=== PATIENT | female | born 1990 | race Two or more races ===

== ENCOUNTER 2025-07-14 11:41 | Emergency (ER) | payer BC, SELFPAY ==
[2025-07-14 11:42] VITALS: BMI 48.2
[2025-07-14 11:50] VITALS: BP 137/80; PULSE 85; RESP 17; TEMP 36.6; O2SAT 97
--- NOTE | 2025-07-14 12:30 | PD.EDRME ---
Rapid Medical Screening Exam E Arrival date/time: 07/14/25 11:41 This is a 34-year-old female that comes into the emergency room with complaints of left-sided flank pain that starts in her left lower abdomen and radiates to her back. Patient states she has had this pain for the past 4 days. Patient states that 3 days ago it seemed to have gone away and then it came back yesterday. Patient has history of diverticulitis, pacemaker placement, diabetes, hyperlipidemia, heart failure, hypertension. I have greeted and performed a focused initial assessment of this patient. Initial appropriate labs ordered at this time. A comprehensive ED assessment and evaluation of the patient and analysis of all test and completion of medical decision making process will be conducted by additional ED provider. Chief Complaint: Abdominal Pain Time Seen by Provider: 07/14/25 11:46 Vital signs: Vital Signs Temperature 97.9 F 07/14/25 11:50 Pulse Rate 85 07/14/25 11:50 Respiratory Rate 17 07/14/25 11:50 Blood Pressure 137/80 H 07/14/25 11:50 Pulse Oximetry (%) 97 07/14/25 11:50 Oxygen Delivery Method Room Air 07/14/25 11:50
[2025-07-14 13:10] LABS: Collection Type, Urine Voided
[2025-07-14 13:34] LABS: Basophils # (Auto) 0.1 Thou/mm3 (0.0-0.2); Basophils % (Auto) 1 % (0-2.5); Eosinophils # (Auto) 0.3 Thou/mm3 (0.0-0.5); Eosinophils % (Auto) 3 % (0-10); Hematocrit 41.5 % (36.0-46.0); Hemoglobin 14.0 g/dL (12.0-16.0); Immature Granulocytes Auto 0.03 Thou/mm3 (0.00-0.00); Lymphocytes # (Auto) 2.3 Thou/mm3 (1.0-4.8); Lymphocytes % (Auto) 20 % (10-50); Mean Corpuscular HGB Conc 33.7 g/dl (31.0-37.0); Mean Corpuscular Hemoglobin 28.1 pg (25.0-35.0); Mean Corpuscular Volume 83 fL (80-100); Monocytes # (Auto) 0.8 Thou/mm3 (0.0-0.8); Monocytes % (Auto) 7 % (0-12); Neutrophils # (Auto) 8.1 Thou/mm3 (1.8-7.7); Neutrophils % (Auto) 70 % (37-80); Nucleated Red Blood Cell # 0.00 Thou/mm3 (0.00-0.00); Nucleated Red Blood Cell % 0 /100 WBC (0); Platelet Count 376 Thou/mm3 (140-440); RDW Standard Deviation 39.2 fL (36.4-46.3); Red Blood Count 4.98 Miln/mm3 (4.00-5.20); White Blood Count 11.6 Thou/mm3 (3.6-11.0)
[2025-07-14 13:40] LABS: HCG Qualitative,Urine Negative
[2025-07-14 13:45] LABS: Alanine Aminotransferase 20 U/L (10-49); Albumin, Serum 4.2 gm/dL (3.5-5.0); Albumin/Globulin Ratio 1.4 (1.2-2.2); Alkaline Phosphatase 120 U/L (46-116); Anion Gap 9 (7-16); Aspartate Amino Transferase 20 U/L (0-34); BUN/Creatinine Ratio 15 Ratio (12-20); Bilirubin,Total 0.3 mg/dL (0.3-1.2); Blood Urea Nitrogen 12 mg/dL (9-23); Calcium 9.4 mg/dL (8.3-10.6); Calcium (Corrected) 9.4 mg/dL (8.5-10.1); Carbon Dioxide 24.7 mMol/L (20.0-31.0); Chloride 108 mMol/L (98-107); Creatinine (Component) 0.8 mg/dL (0.6-1.3); Estimated Creatinine Clearance 134.5 mL/min (>60); Globulin 2.9 gm/dL (2.3-3.5); Glucose 100 mg/dL (74-106); Lipase 56 U/L (12-53); Osmolality,Calculated 282 (275-295); Potassium 3.9 mMol/L (3.4-5.1); Sodium 142 mMol/L (136-145); Total Protein 7.1 gm/dL (5.7-8.2); eGFR > 60 See Note
[2025-07-14 13:47] LABS: Bacteria,Urine Rare; Bilirubin,Urine Negative (Negative); Blood,Urine 3+ (Negative); Calcium Oxalate Crystals,Urine 2+; Clarity,Urine Turbid (Clear/Hazy); Color,Urine Yellow (Lt Yel-Yel); Culture Indicated,Urine Not Indicated; Glucose, Urine Negative (Negative); Ketones,Urine Negative (Negative); Leukocyte Esterase,Urine Positive (Negative); Nitrite,Urine Negative (Negative); PH,Urine 6.0 (5.0-7.0); Protein,Urine 1+ (Neg - Trace); RBC,Urine 48 /hpf (0-3); Specific Gravity,Urine 1.028 (1.001-1.035); Squamous Epithelial Cell,Urine 10 /hpf (0-5); Urobilinogen,Urine Negative mg/dL (0.0-1.0); WBC,Urine 7 /hpf (0-5)
[2025-07-14 14:33] VITALS: BP 153/104; PULSE 77; RESP 20; TEMP 36.6; O2SAT 96
--- NOTE | 2025-07-14 14:34 | XR_ITS ---
Examination: CT abdomen and pelvis without contrast. Coronal 3-D reconstructions. Sagittal 2-D reconstructions. Date and time of exam: 07/14/2025, 2:51 p.m. COMPARISON: 12/08/2020 INDICATION: Left flank pain CTDI: vol (mGy): 23.6 DLP: (mGycm): 1348 Technique: Axial images of the abdomen have been obtained, 3 mm slice thickness Intravenous contrast material has not been administered. Low dose protocols were performed. One or more of the following dose reduction techniques were used; automated exposure control, adjustment of the mA and/or KV according to patient size, use of iterative reconstruction technique. Findings: 4 mm calculus proximal left ureter. Mild dilatation of the left renal pelvis and proximal ureter. Multiple nonobstructive punctate calcifications in the left kidney. No evidence of left perinephric inflammation. No evidence of urinary tract calcifications seen on the right. Otherwise: Lung bases are clear.. Liver, gallbladder, pancreas, spleen and bilateral adrenal glands appear unremarkable. Visualized GI tract appears normal 8 x 4 x 9 cm heterogeneous low-density mass left lower quadrant Impression: 4 mm renal calculus proximal proximal left ureter with mild dilatation of the left renal pelvis. No evidence of perinephric inflammation. 4 x 9 cm left lower quadrant likely dermoid cyst similar in appearance to prior exam
--- NOTE | 2025-07-14 14:39 | EDNOTE_ITS ---
ED Abdominal Pain RME/HPI General Chief Complaint: Abdominal Pain Stated complaint: DIVERTICULITIS FLARE UP HX DIVERTICULITIS Time seen by provider: 07/14/25 11:46 Arrival date/time: 07/14/25 11:41 RME / HPI RME / HPI narrative: 07/14/25 11:41 This is a 34-year-old female that comes into the emergency room with complaints of left-sided flank pain that starts in her left lower abdomen and radiates to her back. Patient states she has had this pain for the past 4 days. Patient states that 3 days ago it seemed to have gone away and then it came back yesterday. Patient has history of diverticulitis, pacemaker placement, diabetes, hyperlipidemia, heart failure, hypertension. I have greeted and performed a focused initial assessment of this patient. Initial appropriate labs ordered at this time. A comprehensive ED assessment a nd evaluation of the patient and analysis of all test and completion of medical decision making process will be conducted by additional ED provider. DR. JACK MAIN ED EVALUATION: 34-year-old female with past medical history of diverticulitis presents to the Emergency Department accompanied by her for left abdominal/ left flank pain. Pain has been persistent but relieved somewhat by Tylenol. She denies dysuria, hematuria, vomiting, fever, or chills. Reports nausea without emesis. No prior history of kidney stones. Denies recent travel, trauma, or changes in bowel habits. Related Data Home Medications ?Medication ?Instructions ?Recorded ?Confirmed furosemide 40 mg tablet (Lasix) 20 mg PO DAILY 0 12/09/20 sacubitril 24 mg-valsartan 26 mg 1 tab PO BID 05/14/20 12/09/20 tablet (Entresto) spironolactone 25 mg tablet 12.5 mg PO DAILY 05/14/20 12/09/20 Previous Rx's ?Medication ?Instructions ?Recorded carvedilol 6.25 mg tablet 6.25 mg PO BID #60 tabs 12/27 01/14 acetaminophen 300 mg-codeine 30 mg 1 tab PO Q6H PRN pa in #15 tabs 12/08/20 tablet naproxen 500 mg tablet (Naprosyn) 500 mg PO BID PRN pa in #30 tabs 12/08/20 cephalexin 500 mg capsule 500 mg PO QID #28 caps 07/14 hydrocodone 5 mg-acetaminophen 325 1 tab PO Q6H PRN pa in #14 tabs 07/14/25 mg tablet ibuprofen 600 mg tablet 600 mg PO Q6H PRN pain #30 t abs 07/14/25 ondansetron 4 mg disintegrating 4 mg PO Q8H PRN nausea and 07/14/25 tablet vomiting #14 tabs tamsulosin 0.4 mg capsule 0.4 mg PO QDAY #14 caps 06/27 05/21 Allergies Allergy/AdvReac Type Severity Reaction Status Date / Time No Known Allergies Allergy Verified 07/14/25 11:45 Review of Systems Review of Systems Systems Reviewed: All systems reviewed, normal except as documented Past Medical History Past Medical History CARDIAC: Positive Cardiac Disorders, Congestive Heart Failure (Diagnosed in January 2020) and Hypertension RESPIRATORY: Positive Dyspnea GASTROINTESTINAL: Positive Diverticulitis PSYCHO/SOCIAL: Positive Anxiety OTHER HISTORY: Positive Hospitalization and Chicken Pox Surgical History SURGICAL: Positive Cardiac Surgery, Pacemaker and Angiogram Social History SMOKING STATUS: Never smoker SUBSTANCE USE: does not use ALCOHOL: Never ED Exam Narrative Physical exam: GENERAL APPEARANCE: alert and oriented x 4, well-developed, well-nourished, appears uncomfortable and grimacing VITALS: All vitals were reviewed and the pulse ox is 96% on room air, which is normal according to my interpretation. HEENT: Normocephalic, atraumatic; pupils equal, round, reactive to light; EOMI; mucous membranes pink, moist; oropharynx clear NECK: Supple LUNGS: CTABL; no wheezes, no rales, no rhonchi HEART: Regular rate, regular rhythm; normal S1, S2; no murmurs ABDOMEN: Soft with mild tenderness over the left side; no rebound or guarding; bowel sounds present BACK: no CVA tenderness EXTREMITIES: atraumatic; no edema NEUROLOGIC: awake; alert and oriented x4; cranial nerves II-XII grossly intact; no focal sensory or motor deficits PSYCHIATRIC: appropriate mood and affect SKIN: warm, dry, normal color; no rashes Course Quality Measures none Orders Category Date Time Status CT abdomen pelvis wo con Stat Exams 07/14/25 14:34 Completed CBC Stat Lab 07/14/25 12:48 Completed Comprehensive Metabolic Panel Stat Lab 07/14/25 12:48 Completed HCG Qualitative,Urine Stat Lab 07/14/25 12:55 Completed Lipase Stat Lab 07/14/25 12:48 Completed Urinalysis, C/S if Indicated Stat Lab 07/14/25 12:55 Completed HYDROcodone*/APAP 5/325 [[place] 5/325] Med 07/14/25 16:24 Discontinued 1 tab PO X1 ONE Ketorolac Inj [Toradol Inj] Med 07/14/25 14:34 Discontinued 30 mg IM X1 ONE Ondansetron Odt [Zofran Odt] Med 07/14/25 16:28 Discontinued 4 mg PO X1 ONE Tamsulosin HCl [Flomax] Med 07/14/25 16:24 Discontinued 0.4 mg PO X1 ONE cephALEXin [Keflex] Med 07/14/25 16:24 Discontinued 500 mg PO X1 ONE Vital Signs Vital signs: Vital Signs Temperature 97.9 F 07/14/25 11:50 Pulse Rate 85 07/14/25 11:50 Respiratory Rate 17 07/14/25 11:50 Blood Pressure 137/80 H 07/14/25 11:50 Pulse Oximetry (%) 97 07/14/25 11:50 Oxygen Delivery Method Room Air 07/14/25 11:50 Abdominal Pain MDM MDM Narrative MDM Narrative:: IChanel am scribing for and in the presence of Dr. Jack. Patient data External records reviewed:: [facility] previous records Clinical information provided by:: patient and spouse Social determinants that could affect healthcare access:: none Patient has the following chronic illnesses:: Diverticulitis How is presenting disease/condition affected by chronic disease/condition?: exacerbated by Evaluation data The following diagnostics were reviewed and interpreted by me:: lab results and radiology exam(s) Lab and/or radiology exams considered but not ordered:: none Interpretation Summary: Procedure(s): CT abdomen pelvis wo [facility] Accession Number(s): [id number] cc: Urbano Coleman MD; Anish Keys MD; Eufemia Jack MD~ Examination: CT abdomen and pelvis without contrast. Coronal 3-D reconstructions. Sagittal 2-D reconstructions. Date and time of exam: 07/14/2025, 2:51 p.m. COMPARISON: 12/08/2020 INDICATION: Left flank pain CTDI: vol (mGy): 23.6 DLP: (mGycm): 1348 Technique: Axial images of the abdomen have been obtained, 3 mm slice thickness Intravenous contrast material has not been administered. Low dose protocols were performed. One or more of the following dose reduction techniques were used; automated exposure control, adjustment of the mA and/or KV according to patient size, use of iterative reconstruction technique. Findings: 4 mm calculus proximal left ureter. Mild dilatation of the left renal pelvis and proximal ureter. Multiple nonobstructive punctate calcifications in the left kidney. No evidence of left perinephric inflammation. No evidence of urinary tract calcifications seen on the right. Otherwise: Lung bases are clear.. Liver, gallbladder, pancreas, spleen and bilateral adrenal glands appear unremarkable. Visualized GI tract appears normal 8 x 4 x 9 cm heterogeneous low-density mass left lower quadrant Impression: 4 mm renal calculus proximal proximal left ureter with mild dilatation of the left renal pelvis. No evidence of perinephric inflammation. 4 x 9 cm left lower quadrant likely dermoid cyst similar in appearance to prior exam Dictated By: Urbano Coleman MD Medications / Prescriptions Medications or Prescriptions considered but not ordered:: none Medication administrations:: Medication Administration History Discontinued Medications Hydrocodone Bitart/Acetaminophen (Hydrocodone/Apap 5/325 Tablet) 1 tab PO X1 ONE Stop: 07/14/25 16:25 Last Admin: 07/14/25 16:43 Dose: 1 tab Documented By: OA Cephalexin HCl (Cephalexin 250 Mg Capsule) 500 mg PO X1 ONE Stop: 07/14/25 16:25 Last Admin: 07/14/25 16:42 Dose: 500 mg Documented By: OA Ketorolac Tromethamine (Ketorolac Inj 30 Mg/Ml Vial) 30 mg IM X1 ONE Stop: 07/14/25 14:35 Last Admin: 07/14/25 14:42 Dose: 30 mg Documented By: OA Ondansetron HCl (Ondansetron Odt 4 Mg Tabrap) 4 mg PO X1 ONE; Protocol Stop: 07/14/25 16:29 Last Admin: 07/14/25 16:43 Dose: 4 mg Documented By: OA Tamsulosin HCl (Tamsulosin Hcl 0.4 Mg Capsule) 0.4 mg PO X1 ONE Stop: 07/14/25 16:25 Last Admin: 07/14/25 16:42 Dose: 0.4 mg Documented By: OA see above Consultations Consultation(s) initiated? (list below): No Diagnosis Differential diagnosis abdominal pain: other (Diverticulitis, nephrolithiasis, and pyelonephritis.) Most likely diagnosis given after review of the tests above:: Left ureteral stone Admission Indicated Admission indicated?: not indicated Admission Request Was there a request for admission?: No Disposition Plan Disposition Plan: Discharge Discharge Attestation Discharge Attestation: The patient and all family members were given an opportunity to ask questions and understood the discharge instructions. Discharge instructions specifically effects, indications for sooner follow up or return to the emergency department, and the expected course of current diagnosis. Patient condition: Stable Discharge Plan Plan Patient Disposition: HOME (Self Care) Prescriptions/Referrals Prescriptions/Med Rec: New hydrocodone-acetaminophen 5-325 mg tablet 1 tab PO Q6H MDD 9 PRN (Reason: pain) Qty: 14 0RF tamsulosin 0.4 mg capsule 0.4 mg PO QDAY Qty: 14 0RF ibuprofen 600 mg tablet 600 mg PO Q6H PRN (Reason: pain) Qty: 30 0RF ondansetron 4 mg tablet,disintegrating 4 mg PO Q8H PRN (Reason: nausea and vomiting) Qty: 14 0RF cephalexin 500 mg capsule 500 mg PO QID Qty: 28 0RF No Action carvedilol 6.25 mg tablet 6.25 mg PO BID Qty: 60 0RF Rx Instructions: must administer with a meal/food spironolactone 25 mg tablet 12.5 mg PO DAILY furosemide [Lasix] 40 mg tablet 20 mg PO DAILY Entresto 24-26 mg Tablet 1 tab PO BID naproxen [Naprosyn] 500 mg tablet 500 mg PO BID PRN (Reason: pain) Qty: 30 0RF acetaminophen-codeine 300-30 mg tablet 1 tab PO Q6H PRN (Reason: pain) Qty: 15 0RF Referrals: Anish Keys MD [Primary Care Provider, Family Practice] - In 1 week Problem List Clinical Impression: Left ureteral stone Patient/Caregiver Discharge Instructions Education Materials: ED Kidney Stone w/ Colic Print Language: Hebrew Stand Alone Forms: Shirley Award Info., Patient Portal Info Letter
[2025-07-14] MEDS: KETOROLAC INJ 30 MG/ML VIAL IM (14:42)
[2025-07-14] MEDS: TAMSULOSIN HCL 0.4 MG CAPSULE PO (16:42)
[2025-07-14] MEDS: ONDANSETRON ODT 4 MG TABRAP PO (16:43)
[2025-07-14] MEDS: HYDROcodone/APAP 5/325 TABLET 1 TAB PO (16:43)
[2025-07-14 16:50] VITALS: BP 132/82; PULSE 78
== END 2025-07-14 16:50 | disposition home or self-care (01) ==
PROVIDERS: Nurse Practitioner Family; Emergency Provider Emergency Medicine; PCP Family Medicine
DX: K57.32 Diverticulitis of large intestine without perforation or abscess without bleeding (principal); E11.9 Type 2 diabetes mellitus without complications; E78.5 Hyperlipidemia, unspecified; I11.0 Hypertensive heart disease with heart failure; I50.9 Heart failure, unspecified; Z95.0 Presence of cardiac pacemaker
CPT/HCPCS: 36415; 74176; 80053; 81001; 81025; 83690; 85025; 96372; 99283; J1885; Q0162; A9270